=== PATIENT | female | born 1975 | race Caucasian/White ===

== ENCOUNTER 2020-10-09 11:50 | Emergency (ER) | payer MEDICAID ==
[~2020-10-09] VITALS: Ht 157.5 cm; Wt 68.0 kg
[2020-10-09 11:58] VITALS: Ht 157.5 cm; Wt 68.0 kg
[2020-10-09 17:31] LABS: BASOPHIL % 0.5 % (0.2-1.3); PLATELET COUNT 318 x10^3mcL (179-408); RED CELL DISTRIBUTION WIDTH 12.8 % (12.3-17.7)
[2020-10-09 17:45] LABS: CALCIUM 8.7 mg/dL (8.5-10.1); CARBON DIOXIDE 25.1 mmol/L (21-32); CHLORIDE SERUM 101 mmol/L (98-107); CREATININE SERUM 0.8 mg/dL (0.6-1.0); GFR1 > 60 mL/min; GLUCOSE SERUM 80 mg/dL (74-106); POTASSIUM SERUM 3.2 mmol/L (3.5-5.1); SODIUM SERUM 138 mmol/L (136-145)
[2020-10-09 17:48] LABS: ALBUMIN 3.8 g/dL (3.4-5.0); ALKALINE PHOSPHATASE 72 U/L (46-116); ALT/SGPT 16 U/L (14-59); AST/SGOT 9 U/L (15-37); BILIRUBIN TOTAL 0.48 mg/dL (0.20-1.00); LIPASE 103 IU/L (73-393); MAGNESIUM 2.1 mg/dL (1.8-2.4); TOTAL PROTEIN, SERUM 8.1 g/dL (6.4-8.2)
[2020-10-09 17:49] LABS: CHOLESTEROL 202 mg/dL (<200); HDL CHOLESTEROL 68 mg/dL (40-60)
[2020-10-09 17:57] LABS: microscopic required? YES; urine erythrocyte 2+ (NEGATIVE)
[2020-10-09 18:37] LABS: AMPHETAMINE QUAL UR NONE DETECTED (See below)
[2020-10-09 19:00] LABS: rbc morphology (normal/abnorm) NORMAL (NORMAL)
[2020-10-09 19:59] VITALS: BP 125/74
== END 2020-10-09 19:59 | disposition home or self-care (01) ==
LOC: ED 11:50
PROVIDERS: Emergency Medicine
DX: R55 Syncope and collapse (principal); R53.1 Weakness; R51.9 Headache, unspecified; R11.0 Nausea; Z20.828 Contact with and (suspected) exposure to other viral communicable diseases; Z98.51 Tubal ligation status
CPT/HCPCS: 82962; 83880